=== PATIENT | female | born 1955 | race Caucasian/White ===

== ENCOUNTER 2017-05-07 19:40 | Emergency (ER) | payer OTHER ==
--- NOTE | 2017-05-07 22:38 | DIAGNOSTIC IMAGING REPORT ---
PROCEDURE: XR WRIST MIN 3 VIEWS - LEFT INDICATION: Wrist pain. No history of trauma. TECHNIQUE: Four views. COMPARISON: None. FINDINGS: There is a small 2 mm osseous density along the dorsum of the left wrist with possible chondrocalcinosis. There are moderate arthritic changes of the left radiocarpal joint with marked arthritic changes in joint space narrowing of the capitate size and ninth articulation. There are moderate arthritic changes of the base of the left thumb (first metacarpal/greater multangular joint. IMPRESSION: 1. There is a 2 mm osseous density of the dorsal left wrist which could represent a loose body or chondrocalcinosis. Consider post traumatic change or calcium pyrophosphate deposition disease (e.g., pseudogout). 2. Moderate arthritic change of the left radiocarpal joint 3. Marked arthritic changes of the lunate/capitate joint. 4. Moderate free change of the left first metacarpal/greater multangular joint (base of thumb). 5. Findings as with KAYLA Zapata.
--- NOTE | 2017-05-07 22:39 | ED NURSING NOTES ---
Clinical Report - Nurses [facility] [address] [place] [address] 05/07/2017 19:43 Patient: CLARY GARCIA TRIAGE Triage time 20:13. Acuity: LEVEL 4. Chief Complaint: LEFT UPPER EXTREMITY PAIN. --20:20 Dari Monson R.N. 20:12 05/07/17. BP: 124/79 taken on the right arm, while lying. HR: 71 (regular and normal rate). RR: 16 (regular and unlabored). O2 saturation: 99% on room air. Temp: 98.1 F (oral). Pain level now: 08/27. --20:20 Dari Monson R.N. Weight: 95.2 kg stated. Height/Length: 68 inches Per Patient. BMI: 31.9. --20:14 Dari Monson R.N. Medications Avapro Oral, 2x a day. --20:17 Dari Monson R.N. Metoprolol Tartrate Oral, daily. --20:17 Dari Monson R.N. Hydrochlorothiazide Oral, every other day. --20:17 Dari Monson R.N. Janumet Oral, bid. --20:18 Dari Monson R.N. Pravastatin Sodium Oral, every other day. --20:18 Dari Monson R.N. Allergies Rocephin. Definite Severe(hives) --20:19 Dari Monson R.N. History Arrived by private vehicle. Historian: patient. Accompanied by family. Primary physician (jenae). No injury occurred. This occurred (Saturday morning). ( right wrist pain denies injury, hurts to move fingers. pt seen at [facility] was sent here for stronger pain medication per pt.). 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 PAST MEDICAL HX: Tetanus status: up-to-date. Immunizations: up-to-date. The patient is post-menopausal. SOCIAL HX: Never smoker. No alcohol use or drug use. No infectious disease exposure. ABUSE ASSESSMENT: No report of abuse. SELF HARM ASSESSMENT: A self harm assessment was performed. The patient answered "no" to the question "Have you recently felt down, depressed, or hopeless?", "Have you noticed less interest or pleasure in doing things?", "Do you have thoughts of harming or killing yourself?", "Are you here because you tried to hurt yourself?", "Have you ever tried to hurt yourself before today?", "Have you recently had thoughts about harming or killing others?" and "Do you have any dangerous items in your possession?". FALL RISK ASSESSMENT: Fall risk assessment completed. No fall risk identified. NUTRITIONAL RISK ASSESSMENT: The nutritional risk assessment revealed no deficiencies. FUNCTIONAL ASSESSMENT: Functional assessment: no impairments noted. LEARNING NEEDS ASSESSMENT: The learning needs assessment revealed no barriers. SKIN INTEGRITY ASSESSMENT: Skin integrity risk assessment completed. No skin integrity risk identified. --20:20 Dari Monson R.N. PROBLEMS: Hypertension. Diabetes Mellitus. --20:20 Dari Monson R.N. ADDITIONAL SURGERIES: Hernia Repair. --20:20 Dari Monson R.N. Interventions ID band on patient. --20:20 Drai Monson R.N. NURSING PROGRESS NOTES ( Pt reports has apt with hand surgeon Angely on saturday, here in need of pain meds to get her through til then,). --21:35 Fabrice Rivas R.N. DISPOSITION / DISCHARGE Condition at departure: unchanged. No learning barriers present. Discharge instructions provided and reviewed with the patient. Reviewed medication(s) side effects information. Prescription(s) given to the patient. Treatments reviewed. Reviewed referrals (pt to keep apt with ortho surgeon on saturday morning at 0845). Patient verbalized understanding. The patient was discharged by the physician. She was discharged home. She left the Emergency Department ambulatory and via private vehicle. Patient driving. --23:05 Fabrice Rivas R.N. 23:03 05/07/17. BP: 118/74. HR: 68. RR: 15. O2 saturation: 99%. Temp: deferred. Pain level now: 08/27. --23:05 Fabrice Rivas R.N. Locked/Released at 05/07/2017 23:06 by Fabrice Rivas R.N.
--- NOTE | 2017-05-07 22:39 | ED CLINICAL REPORT ---
Clinical Report - Physicians/Mid Levels [facility] [address] [place] [address] 05/07/2017 19:43 Patient: CLARY GARCIA Time Seen: 21:31; initial patient contact, initial documentation, patient care assumed. Arrived- By private vehicle. Historian- patient. HISTORY OF PRESENT ILLNESS Chief Complaint: UPPER EXTREMITY PAIN. Modifying factors- worsened by movement. Not made better by anything. Severity is described as being severe. The quality is noted to be "pain". No radiation. This started about 3 days ago and is still present. It was abrupt in onset and has been constant. Symptoms located in the area of the left wrist. No chest pain, difficulty breathing, swelling, sensory loss or motor loss. No repetitive hand use at work. She has not had redness. (has appt saturday with hand ortho Dr Fisher, pt wearing velcro wrist splint that she got at work). Patient denies an injury. Similar symptoms previously: None. Recent medical care: Not recently seen/assessed. REVIEW OF SYSTEMS All systems otherwise negative, except as recorded above. PAST HISTORY See nurses notes. PROBLEMS: Hypertension. Diabetes Mellitus. --20:20 Dari Monson R.N. ADDITIONAL SURGERIES: Hernia Repair. --20:20 Dari Monson R.N. SOCIAL HISTORY Never smoker. No alcohol use or drug use. No recent travel. Is a local resident. FAMILY HISTORY Negative. ADDITIONAL NOTES The nursing notes have been reviewed with agreement regarding the chief complaint, HPI, ROS, PMH and patient medications and allergies. PHYSICAL EXAM Vital Signs: 05/07/2017 20:12 BP: 124/79. HR: 71. RR: 16. O2 saturation: 99%. Temp: 98.1 F. Pain level now: 10/10. Have been reviewed as normal and appear to be correct. Appearance: Alert. Oriented X3. No acute distress. Eyes: Pupils equal, round and reactive to light. Eyes normal inspection. Respiratory: No respiratory distress. Skin: Skin intact. Skin warm and dry. Normal skin color. Normal skin turgor. Extremities: Upper extremities normal to inspection. Upper extremities do not exhibit normal ROM. Upper extremity tenderness. No upper extremity edema. Left wrist: severe tenderness. Limited ROM secondary to pain (diminished flexion and extension, ulnar deviation and radial deviation). Neurovascular intact distally. (pt hurts anywhere I touch her wrist). No erythema, swelling, abrasion, ecchymosis or puncture wound. No foreign body or deformity. No localization or joint effusion. Extremities otherwise negative. Neuro: Oriented X 3. No motor deficit. No sensory deficit. LABS, X-RAYS, AND EKG X-Rays: Left wrist. Lt Wrist X-ray: (IMPRESSION: 1. There is a 2 mm osseous density of the dorsal left wrist which could represent a loose body or chondrocalcinosis. Consider post traumatic change or calcium pyrophosphate deposition disease (e.g., pseudogout). 2. Moderate arthritic change of the left radiocarpal joint 3. Marked arthritic changes of the lunate/capitate joint. 4. Moderate free change of the left first metacarpal/greater multangular joint (base of thumb). 5. Findings as with KAYLA Zapata. Electronically Final signed by:Dileep Austin MD 05/07/2017 10:33:22 PM). The X-rays were independently viewed by me, interpreted by the radiologist and discussed with the radiologist. Interpretation time: 22:33. PROGRESS AND PROCEDURES Patient counseled in person regarding the patient's stable condition, test results and diagnosis. 22:34. Differential Diagnosis: I considered fracture, stress fracture, arthritis, rheumatoid arthritis, septic, gout, pseudogout, tendonitis, myositis, fasciitis and bursitis as a possible cause of upper extremity pain in this patient. This is a partial list of diagnoses considered. (carpal tunnel). Disposition: Discharged home in good and unchanged condition (22:39). Condition: good and stable. CLINICAL IMPRESSION Acute upper extremity pain involving the left wrist. INSTRUCTIONS Wear splint as needed. Warnings: GENERAL WARNINGS: Return or contact your physician immediately if your condition worsens or changes unexpectedly, if not improving as expected, or if other problems arise. Specifically return if problem worsens. Prescription Medications: Ultram 50 mg tablets: take 1-2 orally every 6 hours as needed for pain. Dispense twenty (20). No refills. Substitution is permissible. Understanding of the discharge instructions verbalized by patient. Follow-up with: Jomar Fisher MD, Orthopedic Surgeon, , [address], , [place], [id number] Follow up Saturday as scheduled even if well. Summary of care provided to patient. (Electronically signed by Jocelyne Shah A.R.N.P. 05/07/2017 23:10)
--- NOTE | 2017-05-07 22:39 | ED CLINICAL REPORT ---
Clinical Report - Physicians/Mid Levels [facility] [address] [place] [address] 05/07/2017 19:43 Patient: CLARY GARCIA Time Seen: 21:31; initial patient contact, initial documentation, patient care assumed. Arrived- By private vehicle. Historian- patient. HISTORY OF PRESENT ILLNESS Chief Complaint: UPPER EXTREMITY PAIN. Modifying factors- worsened by movement. Not made better by anything. Severity is described as being severe. The quality is noted to be "pain". No radiation. This started about 3 days ago and is still present. It was abrupt in onset and has been constant. Symptoms located in the area of the left wrist. No chest pain, difficulty breathing, swelling, sensory loss or motor loss. No repetitive hand use at work. She has not had redness. (has appt saturday with hand ortho Dr Fisher, pt wearing velcro wrist splint that she got at work). Patient denies an injury. Similar symptoms previously: None. Recent medical care: Not recently seen/assessed. REVIEW OF SYSTEMS All systems otherwise negative, except as recorded above. PAST HISTORY See nurses notes. PROBLEMS: Hypertension. Diabetes Mellitus. --20:20 Dari Monson R.N. ADDITIONAL SURGERIES: Hernia Repair. --20:20 Dari Monson R.N. SOCIAL HISTORY Never smoker. No alcohol use or drug use. No recent travel. Is a local resident. FAMILY HISTORY Negative. ADDITIONAL NOTES The nursing notes have been reviewed with agreement regarding the chief complaint, HPI, ROS, PMH and patient medications and allergies. PHYSICAL EXAM Vital Signs: 05/07/2017 20:12 BP: 124/79. HR: 71. RR: 16. O2 saturation: 99%. Temp: 98.1 F. Pain level now: 10/10. Have been reviewed as normal and appear to be correct. Appearance: Alert. Oriented X3. No acute distress. Eyes: Pupils equal, round and reactive to light. Eyes normal inspection. Respiratory: No respiratory distress. Skin: Skin intact. Skin warm and dry. Normal skin color. Normal skin turgor. Extremities: Upper extremities normal to inspection. Upper extremities do not exhibit normal ROM. Upper extremity tenderness. No upper extremity edema. Left wrist: severe tenderness. Limited ROM secondary to pain (diminished flexion and extension, ulnar deviation and radial deviation). Neurovascular intact distally. (pt hurts anywhere I touch her wrist). No erythema, swelling, abrasion, ecchymosis or puncture wound. No foreign body or deformity. No localization or joint effusion. Extremities otherwise negative. Neuro: Oriented X 3. No motor deficit. No sensory deficit. LABS, X-RAYS, AND EKG X-Rays: Left wrist. Lt Wrist X-ray: (IMPRESSION: 1. There is a 2 mm osseous density of the dorsal left wrist which could represent a loose body or chondrocalcinosis. Consider post traumatic change or calcium pyrophosphate deposition disease (e.g., pseudogout). 2. Moderate arthritic change of the left radiocarpal joint 3. Marked arthritic changes of the lunate/capitate joint. 4. Moderate free change of the left first metacarpal/greater multangular joint (base of thumb). 5. Findings as with KAYLA Zapata. Electronically Final signed by:Dileep Austin MD 05/07/2017 10:33:22 PM). The X-rays were independently viewed by me, interpreted by the radiologist and discussed with the radiologist. Interpretation time: 22:33. PROGRESS AND PROCEDURES Patient counseled in person regarding the patient's stable condition, test results and diagnosis. 22:34. Differential Diagnosis: I considered fracture, stress fracture, arthritis, rheumatoid arthritis, septic, gout, pseudogout, tendonitis, myositis, fasciitis and bursitis as a possible cause of upper extremity pain in this patient. This is a partial list of diagnoses considered. (carpal tunnel). Disposition: Discharged home in good and unchanged condition (22:39). Condition: good and stable. CLINICAL IMPRESSION Acute upper extremity pain involving the left wrist. INSTRUCTIONS Wear splint as needed. Warnings: GENERAL WARNINGS: Return or contact your physician immediately if your condition worsens or changes unexpectedly, if not improving as expected, or if other problems arise. Specifically return if problem worsens. Prescription Medications: Ultram 50 mg tablets: take 1-2 orally every 6 hours as needed for pain. Dispense twenty (20). No refills. Substitution is permissible. Understanding of the discharge instructions verbalized by patient. Follow-up with: Jomar Fisher MD, Orthopedic Surgeon, , [address], , [place], [id number] Follow up Saturday as scheduled even if well. Summary of care provided to patient. (Electronically signed by Jocelyne Shah A.R.N.P. 05/07/2017 23:10)
--- NOTE | 2017-05-07 22:39 | ED ORDER SUMMARY ---
..... Patient: CLARY GARCIA OrderSheet [facility] VisitID: [id number] [address] [place] [address] 62y, F Registration Date/Time: 05/07/2017 ORDER SHEET Weight: 95.2 kg (stated) Allergies: Rocephin GENERAL ORDERS: Wrist 3 or 4V Left Urgent (22:03 05/07/2017 HBivens A.R.N.P.) (Ack 22:14 AMcQuoid ER Tech1) (22:16 MCampbell) MEDICATION ORDERS: IV FLUIDS: ORDER SHEET NOTES: [Electronically signed by Fabrice Rivas R.N. (23:06 05/07/2017)] [Electronically signed by Jocelyne ShahR.N.PStephanie (23:10 05/07/2017)] [Electronically locked/signed by Fabrice Rivas R.N. (23:06 05/07/2017)]
--- NOTE | 2017-05-07 22:39 | ED NURSING NOTES ---
Clinical Report - Nurses [facility] [address] [place] [address] 05/07/2017 19:43 Patient: CLARY GARCIA TRIAGE Triage time 20:13. Acuity: LEVEL 4. Chief Complaint: LEFT UPPER EXTREMITY PAIN. --20:20 Dari Monson R.N. 20:12 05/07/17. BP: 124/79 taken on the right arm, while lying. HR: 71 (regular and normal rate). RR: 16 (regular and unlabored). O2 saturation: 99% on room air. Temp: 98.1 F (oral). Pain level now: 08/27. --20:20 Dari Monson R.N. Weight: 95.2 kg stated. Height/Length: 68 inches Per Patient. BMI: 31.9. --20:14 Dari Monson R.N. Medications Avapro Oral, 2x a day. --20:17 Dari Monson R.N. Metoprolol Tartrate Oral, daily. --20:17 Dari Monson R.N. Hydrochlorothiazide Oral, every other day. --20:17 Dari Monson R.N. Janumet Oral, bid. --20:18 Dari Monson R.N. Pravastatin Sodium Oral, every other day. --20:18 Dari Monson R.N. Allergies Rocephin. Definite Severe(hives) --20:19 Dari Monson R.N. History Arrived by private vehicle. Historian: patient. Accompanied by family. Primary physician (jenae). No injury occurred. This occurred (Saturday morning). ( right wrist pain denies injury, hurts to move fingers. pt seen at [facility] was sent here for stronger pain medication per pt.). 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 PAST MEDICAL HX: Tetanus status: up-to-date. Immunizations: up-to-date. The patient is post-menopausal. SOCIAL HX: Never smoker. No alcohol use or drug use. No infectious disease exposure. ABUSE ASSESSMENT: No report of abuse. SELF HARM ASSESSMENT: A self harm assessment was performed. The patient answered "no" to the question "Have you recently felt down, depressed, or hopeless?", "Have you noticed less interest or pleasure in doing things?", "Do you have thoughts of harming or killing yourself?", "Are you here because you tried to hurt yourself?", "Have you ever tried to hurt yourself before today?", "Have you recently had thoughts about harming or killing others?" and "Do you have any dangerous items in your possession?". FALL RISK ASSESSMENT: Fall risk assessment completed. No fall risk identified. NUTRITIONAL RISK ASSESSMENT: The nutritional risk assessment revealed no deficiencies. FUNCTIONAL ASSESSMENT: Functional assessment: no impairments noted. LEARNING NEEDS ASSESSMENT: The learning needs assessment revealed no barriers. SKIN INTEGRITY ASSESSMENT: Skin integrity risk assessment completed. No skin integrity risk identified. --20:20 Dari Monson R.N. PROBLEMS: Hypertension. Diabetes Mellitus. --20:20 Dari Monson R.N. ADDITIONAL SURGERIES: Hernia Repair. --20:20 Dari Monson R.N. Interventions ID band on patient. --20:20 Dari Monson R.N. NURSING PROGRESS NOTES ( Pt reports has apt with hand surgeon Angely on saturday, here in need of pain meds to get her through til then,). --21:35 Fabrice Rivas R.N. DISPOSITION / DISCHARGE Condition at departure: unchanged. No learning barriers present. Discharge instructions provided and reviewed with the patient. Reviewed medication(s) side effects information. Prescription(s) given to the patient. Treatments reviewed. Reviewed referrals (pt to keep apt with ortho surgeon on saturday morning at 0845). Patient verbalized understanding. The patient was discharged by the physician. She was discharged home. She left the Emergency Department ambulatory and via private vehicle. Patient driving. --23:05 Fabrice Rivas R.N. 23:03 05/07/17. BP: 118/74. HR: 68. RR: 15. O2 saturation: 99%. Temp: deferred. Pain level now: 08/27. --23:05 Fabrice Rivas R.N. Locked/Released at 05/07/2017 23:06 by Fabrice Rivas R.N.
--- NOTE | 2017-05-07 22:39 | ED ORDER SUMMARY ---
..... Patient: CLARY GARCIA OrderSheet [facility] VisitID: [id number] [address] [place] [address] 62y, F Registration Date/Time: 05/07/2017 ORDER SHEET Weight: 95.2 kg (stated) Allergies: Rocephin GENERAL ORDERS: Wrist 3 or 4V Left Urgent (22:03 05/07/2017 HBivens A.R.N.P.) (Ack 22:14 AMcQuoid ER Tech1) (22:16 MCampbell) MEDICATION ORDERS: IV FLUIDS: ORDER SHEET NOTES: [Electronically signed by Fabrice Rivas R.N. (23:06 05/07/2017)] [Electronically signed by Jocelyne ShahR.N.PStephanie (23:10 05/07/2017)] [Electronically locked/signed by Fabrice Rivas R.N. (23:06 05/07/2017)]
--- NOTE | 2017-05-07 23:10 | ED MED RECONCILIATION SUMMARY ---
Patient: CLARY GARCIA Medication Reconciliation Report [facility] VisitID: [id number] [address] [place] [address] 62y, F Registration Date/Time: 05/07/2017 Weight: 95.2 kg Height/Length: 68 in. BMI: 31.9 ALLERGIES: Rocephin The patient's Home Medications are listed below: THE FOLLOWING MEDICATIONS NEED TO BE RECONCILED: Avapro Oral, 2x a day Hydrochlorothiazide Oral, every other day Janumet Oral, bid Metoprolol Tartrate Oral, daily Pravastatin Sodium Oral, every other day The source(s) of the original Home Medication information: Not obtained. The following Medications were given to the patient in the Emergency Department: None. The following Medications were prescribed to the patient: Ultram 50 mg tablets: take 1-2 orally every 6 hours as needed for pain. Dispense twenty (20). No refills. Substitution is permissible. -- Jocelyne Shah A.R.N.P.
--- NOTE | 2017-05-07 23:10 | ED DISCHARGE INSTRUCTIONS ---
Patient: CLARY GARCIA General Instructions [facility] VisitID: [id number] [place] [address] 62y, F Registration Date/Time: 05/07/2017 Acute upper extremity pain involving the left wrist. INSTRUCTIONS Wear splint as needed. Warnings: GENERAL WARNINGS: Return or contact your physician immediately if your condition worsens or changes unexpectedly, if not improving as expected, or if other problems arise. Specifically return if problem worsens. Prescription Medications: Ultram 50 mg tablets: take 1-2 orally every 6 hours as needed for pain. Dispense twenty (20). No refills. Substitution is permissible. Understanding of the discharge instructions verbalized by patient. Follow-up with: Jomar Fihser MD, Orthopedic Surgeon, , [address], , [place], [id number] Follow up Saturday as scheduled even if well. Summary of care provided to patient. ADDITIONAL INFORMATION Osteoarthritis Osteoarthritis (also called Degenerative Joint Disease) is the most common form of arthritis in adults over 50. It is not the same as Rheumatoid Arthritis. The exact cause is not known but may be related to excess wear and tear on the joint over a long period of time. Prior injury to that joint, or repeated stress on a joint can also cause this type of arthritis. Osteoarthritis most often affects the hands, knees, spine and hips (in that order). The most common symptoms are joint stiffness, pain and swelling. Home Care: When a joint is more sore than usual, rest that joint for a day or two. Heat is very helpful. This can be provided by taking hot baths, applying a heating pad for up to 30 minutes at a time. Because symptoms are usually worse in the morning, many patients like to take a hot bath just after awakening to relax the muscle and soothe the joints. Exercise is the most important part of home treatment for osteoarthritis. This prevents the muscles and ligaments around the joint from becoming weak and helps maintain the full range of joint motion. This limits further damage to the joint. If you are overweight, this puts a lot of extra strain on weight-bearing joints of the lower back, hips, knees, feet and ankles. Losing weight will improve your arthritis symptoms in these joints. Talk to your doctor about a safe and effective weight loss program for yourself. Anti-inflammatory medicine such as ibuprofen (Advil, Motrin) or naproxen (Aleve) is often used to treat this condition. If this alone is not helping, your doctor may prescribe a stronger medicine. If narcotic pain medicines have been prescribed, they should be used in addition to anti-inflammatory drugs and only for severe pain. Follow Up with your doctor as advised by our staff. Get Prompt Medical Attention if any of the following occur: Redness or swelling of a painful joint Fever of 100.4F (38C) or higher, or as directed by your healthcare provider Worsening joint pain Wrist Splint: Velcro A splint is designed to prevent movement of the bones, muscles and tendons of the wrist. Velcro wrist splints are used because of their comfort and convenience. In certain conditions, the splint can be removed when bathing or changing clothes. The condition you are being treated for will determine how long you should wear the splint and if it is safe to remove your splint before your next visit. If you are unsure, ask your nurse or doctor. Get Prompt Medical Attention if any of the following occur: -- Increased pain or swelling under the splint or in the hand or fingers -- Fingers or hand becomes cold, blue, numb or tingly Tramadol Hydrochloride Oral tablet What is this medicine? TRAMADOL (TRA ma dole) is a pain reliever. It is used to treat moderate to severe pain in adults. How should I use this medicine? Take this medicine by mouth with a full glass of water. Follow the directions on the prescription label. If the medicine upsets your stomach, take it with food or milk. Do not take more medicine than you are told to take. Talk to your senior infrastructure architect regarding the use of this medicine in children. Special care may be needed. What side effects may I notice from receiving this medicine? Side effects that you should report to your doctor or health intensive care medicine specialist as soon as possible: allergic reactions like skin rash, itching or hives, swelling of the face, lips, or tongue breathing difficulties, wheezing confusion itching light headedness or fainting spells redness, blistering, peeling or loosening of the skin, including inside the mouth seizures Side effects that usually do not require medical attention (report to your doctor or health intensive care medicine specialist if they continue or are bothersome): constipation dizziness drowsiness headache nausea, vomiting What may interact with this medicine? Do not take this medicine with any of the following medications: MAOIs like Carbex, Eldepryl, Marplan, Nardil, and Parnate This medicine may also interact with the following medications: alcohol or medicines that contain alcohol antihistamines benzodiazepines bupropion carbamazepine or oxcarbazepine clozapine cyclobenzaprine digoxin furazolidone linezolid medicines for depression, anxiety, or psychotic disturbances medicines for migraine headache like almotriptan, eletriptan, frovatriptan, naratriptan, rizatriptan, sumatriptan, zolmitriptan medicines for pain like pentazocine, buprenorphine, butorphanol, meperidine, nalbuphine, and propoxyphene medicines for sleep muscle relaxants naltrexone phenobarbital phenothiazines like perphenazine, thioridazine, chlorpromazine, mesoridazine, fluphenazine, prochlorperazine, promazine, and trifluoperazine procarbazine warfarin What if I miss a dose? If you miss a dose, take it as soon as you can. If it is almost time for your next dose, take only that dose. Do not take double or extra doses. Where should I keep my medicine? Keep out of the reach of children. Store at room temperature between 15 and 30 degrees C (59 and 86 degrees F). Keep container tightly closed. Throw away any unused medicine after the expiration date. What should I tell my health care provider before I take this medicine? They need to know if you have any of these conditions: brain tumor depression drug abuse or addiction head injury if you frequently drink alcohol containing drinks kidney disease or trouble passing urine liver disease lung disease, asthma, or breathing problems seizures or epilepsy suicidal thoughts, plans, or attempt; a previous suicide attempt by you or a family member an unusual or allergic reaction to tramadol, codeine, other medicines, foods, dyes, or preservatives or trying to get breast-feeding What should I watch for while using this medicine? Tell your doctor or health intensive care medicine specialist if your pain does not go away, if it gets worse, or if you have new or a different type of pain. You may develop tolerance to the medicine. Tolerance means that you will need a higher dose of the medicine for pain relief. Tolerance is normal and is expected if you take this medicine for a long time. Do not suddenly stop taking your medicine because you may develop a severe reaction. Your body becomes used to the medicine. This does NOT mean you are addicted. Addiction is a behavior related to getting and using a drug for a non-medical reason. If you have pain, you have a medical reason to take pain medicine. Your doctor will tell you how much medicine to take. If your doctor wants you to stop the medicine, the dose will be slowly lowered over time to avoid any side effects. You may get drowsy or dizzy. Do not drive, use machinery, or do anything that needs mental alertness until you know how this medicine affects you. Do not stand or sit up quickly, especially if you are an older patient. This reduces the risk of dizzy or fainting spells. Alcohol can increase or decrease the effects of this medicine. Avoid alcoholic drinks. You may have constipation. Try to have a bowel movement at least every 2 to 3 days. If you do not have a bowel movement for 3 days, call your doctor or health intensive care medicine specialist. Your mouth may get dry. Chewing sugarless gum or sucking hard candy, and drinking plenty of water may help. Contact your doctor if the problem does not go away or is severe. You have been given the following additional information: Osteoarthritis Wrist Splint, Velcro Tramadol Hydrochloride Oral tablet (Electronically signed by Jocelyne Shah A.R.N.P. 05/07/2017 23:10)
--- NOTE | 2017-05-07 23:10 | ED MED RECONCILIATION SUMMARY ---
Patient: CLARY GARCIA Medication Reconciliation Report [facility] VisitID: [id number] [address] [place] [address] 62y, F Registration Date/Time: 05/07/2017 Weight: 95.2 kg Height/Length: 68 in. BMI: 31.9 ALLERGIES: Rocephin The patient's Home Medications are listed below: THE FOLLOWING MEDICATIONS NEED TO BE RECONCILED: Avapro Oral, 2x a day Hydrochlorothiazide Oral, every other day Janumet Oral, bid Metoprolol Tartrate Oral, daily Pravastatin Sodium Oral, every other day The source(s) of the original Home Medication information: Not obtained. The following Medications were given to the patient in the Emergency Department: None. The following Medications were prescribed to the patient: Ultram 50 mg tablets: take 1-2 orally every 6 hours as needed for pain. Dispense twenty (20). No refills. Substitution is permissible. -- Jocelyne Shah A.R.N.P.
--- NOTE | 2017-05-07 23:10 | ED MAR SUMMARY ---
..... Medication Administration Record [facility] [address] [place], [place] [id number] Patient: CLARY GARCIA Visit ID: [id number] 62y, F Weight: 95.2 kg Height/Length: 68 in BMI: 31.9 ALLERGIES: Rocephin
--- NOTE | 2017-05-07 23:10 | ED MAR SUMMARY ---
..... Medication Administration Record [facility] [address] [place], [place] [id number] Patient: CLARY GARCIA Visit ID: [id number] 62y, F Weight: 95.2 kg Height/Length: 68 in BMI: 31.9 ALLERGIES: Rocephin
--- NOTE | 2017-05-07 23:10 | ED DISCHARGE INSTRUCTIONS ---
Patient: CLARY GARCIA General Instructions [facility] VisitID: [id number] [place] [address] 62y, F Registration Date/Time: 05/07/2017 Acute upper extremity pain involving the left wrist. INSTRUCTIONS Wear splint as needed. Warnings: GENERAL WARNINGS: Return or contact your physician immediately if your condition worsens or changes unexpectedly, if not improving as expected, or if other problems arise. Specifically return if problem worsens. Prescription Medications: Ultram 50 mg tablets: take 1-2 orally every 6 hours as needed for pain. Dispense twenty (20). No refills. Substitution is permissible. Understanding of the discharge instructions verbalized by patient. Follow-up with: Jomar Fisher MD, Orthopedic Surgeon, , [address], , [place], [id number] Follow up Saturday as scheduled even if well. Summary of care provided to patient. ADDITIONAL INFORMATION Osteoarthritis Osteoarthritis (also called Degenerative Joint Disease) is the most common form of arthritis in adults over 50. It is not the same as Rheumatoid Arthritis. The exact cause is not known but may be related to excess wear and tear on the joint over a long period of time. Prior injury to that joint, or repeated stress on a joint can also cause this type of arthritis. Osteoarthritis most often affects the hands, knees, spine and hips (in that order). The most common symptoms are joint stiffness, pain and swelling. Home Care: When a joint is more sore than usual, rest that joint for a day or two. Heat is very helpful. This can be provided by taking hot baths, applying a heating pad for up to 30 minutes at a time. Because symptoms are usually worse in the morning, many patients like to take a hot bath just after awakening to relax the muscle and soothe the joints. Exercise is the most important part of home treatment for osteoarthritis. This prevents the muscles and ligaments around the joint from becoming weak and helps maintain the full range of joint motion. This limits further damage to the joint. If you are overweight, this puts a lot of extra strain on weight-bearing joints of the lower back, hips, knees, feet and ankles. Losing weight will improve your arthritis symptoms in these joints. Talk to your doctor about a safe and effective weight loss program for yourself. Anti-inflammatory medicine such as ibuprofen (Advil, Motrin) or naproxen (Aleve) is often used to treat this condition. If this alone is not helping, your doctor may prescribe a stronger medicine. If narcotic pain medicines have been prescribed, they should be used in addition to anti-inflammatory drugs and only for severe pain. Follow Up with your doctor as advised by our staff. Get Prompt Medical Attention if any of the following occur: Redness or swelling of a painful joint Fever of 100.4F (38C) or higher, or as directed by your healthcare provider Worsening joint pain Wrist Splint: Velcro A splint is designed to prevent movement of the bones, muscles and tendons of the wrist. Velcro wrist splints are used because of their comfort and convenience. In certain conditions, the splint can be removed when bathing or changing clothes. The condition you are being treated for will determine how long you should wear the splint and if it is safe to remove your splint before your next visit. If you are unsure, ask your nurse or doctor. Get Prompt Medical Attention if any of the following occur: -- Increased pain or swelling under the splint or in the hand or fingers -- Fingers or hand becomes cold, blue, numb or tingly Tramadol Hydrochloride Oral tablet What is this medicine? TRAMADOL (TRA ma dole) is a pain reliever. It is used to treat moderate to severe pain in adults. How should I use this medicine? Take this medicine by mouth with a full glass of water. Follow the directions on the prescription label. If the medicine upsets your stomach, take it with food or milk. Do not take more medicine than you are told to take. Talk to your coding clerk regarding the use of this medicine in children. Special care may be needed. What side effects may I notice from receiving this medicine? Side effects that you should report to your doctor or health managed care liaison as soon as possible: allergic reactions like skin rash, itching or hives, swelling of the face, lips, or tongue breathing difficulties, wheezing confusion itching light headedness or fainting spells redness, blistering, peeling or loosening of the skin, including inside the mouth seizures Side effects that usually do not require medical attention (report to your doctor or health managed care liaison if they continue or are bothersome): constipation dizziness drowsiness headache nausea, vomiting What may interact with this medicine? Do not take this medicine with any of the following medications: MAOIs like Carbex, Eldepryl, Marplan, Nardil, and Parnate This medicine may also interact with the following medications: alcohol or medicines that contain alcohol antihistamines benzodiazepines bupropion carbamazepine or oxcarbazepine clozapine cyclobenzaprine digoxin furazolidone linezolid medicines for depression, anxiety, or psychotic disturbances medicines for migraine headache like almotriptan, eletriptan, frovatriptan, naratriptan, rizatriptan, sumatriptan, zolmitriptan medicines for pain like pentazocine, buprenorphine, butorphanol, meperidine, nalbuphine, and propoxyphene medicines for sleep muscle relaxants naltrexone phenobarbital phenothiazines like perphenazine, thioridazine, chlorpromazine, mesoridazine, fluphenazine, prochlorperazine, promazine, and trifluoperazine procarbazine warfarin What if I miss a dose? If you miss a dose, take it as soon as you can. If it is almost time for your next dose, take only that dose. Do not take double or extra doses. Where should I keep my medicine? Keep out of the reach of children. Store at room temperature between 15 and 30 degrees C (59 and 86 degrees F). Keep container tightly closed. Throw away any unused medicine after the expiration date. What should I tell my health care provider before I take this medicine? They need to know if you have any of these conditions: brain tumor depression drug abuse or addiction head injury if you frequently drink alcohol containing drinks kidney disease or trouble passing urine liver disease lung disease, asthma, or breathing problems seizures or epilepsy suicidal thoughts, plans, or attempt; a previous suicide attempt by you or a family member an unusual or allergic reaction to tramadol, codeine, other medicines, foods, dyes, or preservatives or trying to get breast-feeding What should I watch for while using this medicine? Tell your doctor or health managed care liaison if your pain does not go away, if it gets worse, or if you have new or a different type of pain. You may develop tolerance to the medicine. Tolerance means that you will need a higher dose of the medicine for pain relief. Tolerance is normal and is expected if you take this medicine for a long time. Do not suddenly stop taking your medicine because you may develop a severe reaction. Your body becomes used to the medicine. This does NOT mean you are addicted. Addiction is a behavior related to getting and using a drug for a non-medical reason. If you have pain, you have a medical reason to take pain medicine. Your doctor will tell you how much medicine to take. If your doctor wants you to stop the medicine, the dose will be slowly lowered over time to avoid any side effects. You may get drowsy or dizzy. Do not drive, use machinery, or do anything that needs mental alertness until you know how this medicine affects you. Do not stand or sit up quickly, especially if you are an older patient. This reduces the risk of dizzy or fainting spells. Alcohol can increase or decrease the effects of this medicine. Avoid alcoholic drinks. You may have constipation. Try to have a bowel movement at least every 2 to 3 days. If you do not have a bowel movement for 3 days, call your doctor or health managed care liaison. Your mouth may get dry. Chewing sugarless gum or sucking hard candy, and drinking plenty of water may help. Contact your doctor if the problem does not go away or is severe. You have been given the following additional information: Osteoarthritis Wrist Splint, Velcro Tramadol Hydrochloride Oral tablet (Electronically signed by Jocelyne Shah A.R.N.P. 05/07/2017 23:10)
== END 2017-05-07 23:02 | disposition home or self-care (01) ==
LOC: ED SRH 19:40
DX: M25.532 Pain in left wrist (principal); E11.9 Type 2 diabetes mellitus without complications; I10 Essential (primary) hypertension; Z79.84 Long term (current) use of oral hypoglycemic drugs; Z79.899 Other long term (current) drug therapy; Z88.8 Allergy status to other drugs, medicaments and biological substances